=== PATIENT | male | born 1990 | race African-American/Black ===

== ENCOUNTER 2017-02-18 10:11 | Emergency (ER) | payer OTHER ==
[~2017-02-18] VITALS: Ht 172.7 cm; Wt 67.9 kg
[2017-02-18 12:36] LABS: HEMATOCRIT 46.1 % (38.0-50.0); HEMOGLOBIN 15.6 G/DL (12.5-16.6); MCH 29.5 PG (29.0-34.0); MCHC 33.8 G/DL (30.0-36.0); MCV 87.1 FL (86-99); RBC DIS.WIDTH-SD 41.4 % (39-53); RED BLOOD COUNT 5.29 M/uL (4.00-5.50); WHITE BLOOD COUNT 4.4 K/uL (4.1-10.2)
[2017-02-18 12:45] LABS: ALBUMIN 4.4 g/dL (3.2-4.8); CHLORIDE 102 mEq/L (99-109); POTASSIUM 3.9 mEq/L (3.7-5.4)
[2017-02-18 12:46] LABS: SODIUM 135 mEq/L (136-147)
[2017-02-18 12:48] LABS: GLUCOSE 88 mg/dL (70-99); TOTAL PROTEIN 7.4 g/dL (6.4-8.3)
[2017-02-18 12:50] LABS: TOTAL BILIRUBIN 0.8 mg/dL (0.0-1.0)
[2017-02-18 12:51] LABS: ALKALINE PHOSPHATASE 82 IU/L (3-129); CREATININE 1.1 mg/dL (0.6-1.3); GFR ESTIMATE (CALCULATED) > 59 mL/min/ (58.99-99999)
[2017-02-18 12:53] LABS: AST (GOT) 32 IU/L (2-34); UREA NITROGEN (BUN) 16 mg/dL (9-23)
[2017-02-18 12:54] LABS: ALT (GPT) 26 IU/L (3-49)
[2017-02-18 12:55] LABS: LIPASE 24 U/L (1.0-51.0)
[2017-02-18 13:34] LABS: PLAT.SUFFICIENCY ADEQUATE; PLATELET COUNT 186 K/uL (156-360)
[2017-02-18 14:59] LABS: APPEARANCE CLEAR ((CLEAR)); BILIRUBIN NEGATIVE; BLOOD NEGATIVE; COLOR YELLOW ((YELLOW)); GLUCOSE (STRIP) NEGATIVE; KETONES NEGATIVE; LEUKOCYTES NEGATIVE; NITRITE NEGATIVE; PROTEIN (STRIP) NEGATIVE; UROBILINOGEN 0.2 MG/DL (0.2-1.0)
[2017-02-18] MEDS ORDERED: ZOFRAN ODT4 MG PO (15:02)
[2017-02-18] MEDS ORDERED: BENTYL10 MG PO (15:02)
[2017-02-18 15:25] VITALS: BP 98/60
[2017-02-18 15:43] LABS: SPECIFIC GRAVITY 1.096 (1.000-1.030)
== END 2017-02-18 15:25 | disposition home or self-care (01) ==
LOC: EME 10:11
PROVIDERS: Nurse Practitioner Family
DX: R10.30 Lower abdominal pain, unspecified (principal); R11.10 Vomiting, unspecified; K76.0 Fatty (change of) liver, not elsewhere classified
CPT/HCPCS: 74177; 80053; 81003; 83690; 85027; 99281; 99284; J1885; J2405; J7030

== ENCOUNTER 2017-02-19 07:57 | Emergency (ER) | payer OTHER ==
[~2017-02-19] VITALS: Ht 172.7 cm; Wt 68.1 kg
[~2017-02-19 07:57] MED LIST: BENTYL10 MG PO; ZOFRAN ODT4 MG PO
[2017-02-19 07:59] VITALS: BP 115/56
== END 2017-02-19 08:20 | disposition left against medical advice (07) ==
LOC: EME 07:57
DX: R10.13 Epigastric pain (principal); Z53.21 Procedure and treatment not carried out due to patient leaving prior to being seen by health care provider

== ENCOUNTER 2017-03-07 14:47 | Emergency (ER) | payer OTHER ==
[~2017-03-07] VITALS: Ht 172.7 cm; Wt 67.4 kg
[2017-03-07 16:44] LABS: HEMATOCRIT 45.4 % (38.0-50.0); HEMOGLOBIN 15.1 G/DL (12.5-16.6); MCH 29.2 PG (29.0-34.0); MCHC 33.3 G/DL (30.0-36.0); MCV 87.8 FL (86-99); PLATELET COUNT 180 K/uL (156-360); RBC DIS.WIDTH-CV 13.1 % (11.8-14.6); RBC DIS.WIDTH-SD 42.4 % (39-53); RED BLOOD COUNT 5.17 M/uL (4.00-5.50); WHITE BLOOD COUNT 7.8 K/uL (4.1-10.2)
[2017-03-07 16:52] LABS: CHLORIDE 105 mEq/L (99-109); POTASSIUM 3.5 mEq/L (3.7-5.4); SODIUM 138 mEq/L (136-147)
[2017-03-07 16:54] LABS: GLUCOSE 88 mg/dL (70-99)
[2017-03-07 16:57] LABS: SERUM ETHYL ALCOHOL < 10 mg/dL
[2017-03-07 16:58] LABS: CREATININE 0.9 mg/dL (0.6-1.3); GFR ESTIMATE (CALCULATED) > 59 mL/min/ (58.99-99999); UREA NITROGEN (BUN) 11 mg/dL (9-23)
[2017-03-07 18:26] LABS: APPEARANCE SL.HAZY ((CLEAR)); BILIRUBIN NEGATIVE; BLOOD NEGATIVE; GLUCOSE (STRIP) NEGATIVE; KETONES 5; LEUKOCYTES NEGATIVE; NITRITE NEGATIVE; PROTEIN (STRIP) 100; SPECIFIC GRAVITY 1.032 (1.000-1.030)
[2017-03-07 18:31] LABS: BACTERIA RARE /HPF; EPITHELIAL CELLS RARE /HPF; MUCUS 4+ /LPF; RED BLOOD CELLS 0-5 /HPF (0-5); WHITE BLOOD CELLS 0-5 /HPF (0-5)
[2017-03-07 18:38] LABS: AMPHETAMINE NEGATIVE (500 ng/mL); BARBITURATES NEGATIVE (200 ng/mL); BENZODIAZEPINES NEGATIVE (150 ng/mL); BUPRENORPHINE NEGATIVE (10 ng/mL); COCAINE NEGATIVE (150 ng/mL); METHADONE NEGATIVE (200 ng/mL); METHAMPHETAMINE NEGATIVE (500 ng/mL); OPIATES (MORPHINE) NEGATIVE (100 ng/mL); OXYCODONE NEGATIVE (100 ng/mL); PHENCYCLIDINE NEGATIVE (25 ng/mL); PROPOXYPHENE NEGATIVE (300 ng/mL); THC CANNABINOIDS PRESUMPTIVE POSITIVE (50 ng/mL); TRICYCLIC ANTIDEPRESSANTS NEGATIVE (300 ng/mL)
[2017-03-07 18:41] LABS: COLOR YELLOW ((YELLOW))
[2017-03-07] MEDS ORDERED: ZOFRAN ODT8 MG PO (19:31)
[2017-03-07] MEDS ORDERED: BENTYL20 MG PO (19:31)
[2017-03-07 19:56] VITALS: BP 132/96
[2017-03-09 09:21] LABS: TREPONEMA ANTIBODY NEGATIVE (NEGATIVE)
== END 2017-03-07 20:08 | disposition home or self-care (01) ==
LOC: EME 14:47
PROVIDERS: Physician Assistant
DX: Z71.1 Person with feared health complaint in whom no diagnosis is made (principal); F12.10 Cannabis abuse, uncomplicated; F41.9 Anxiety disorder, unspecified; F17.200 Nicotine dependence, unspecified, uncomplicated
CPT/HCPCS: 80048; 81003; 84999; 85027; 86780; 87177; 90832; 99281; 99284; G0480

== ENCOUNTER 2017-05-13 14:09 | Emergency (ER) | payer OTHER ==
[~2017-05-13] VITALS: Ht 172.7 cm; Wt 65.9 kg
[~2017-05-13 14:09] MED LIST changes: +BENTYL20 MG PO; +ZOFRAN ODT8 MG PO
[2017-05-13 14:44] LABS: HEMATOCRIT 41.8 % (38.0-50.0); HEMOGLOBIN 14.1 G/DL (12.5-16.6); MCH 28.9 PG (29.0-34.0); MCHC 33.7 G/DL (30.0-36.0); MCV 85.7 FL (86-99); RBC DIS.WIDTH-CV 13.3 % (11.8-14.6); RBC DIS.WIDTH-SD 41.9 % (39-53); RED BLOOD COUNT 4.88 M/uL (4.00-5.50); WHITE BLOOD COUNT 4.4 K/uL (4.1-10.2)
[2017-05-13 14:56] LABS: ALBUMIN 4.3 g/dL (3.2-4.8); CHLORIDE 106 mEq/L (99-109); POTASSIUM 4.1 mEq/L (3.7-5.4); SODIUM 139 mEq/L (136-147)
[2017-05-13 14:58] LABS: GLUCOSE 82 mg/dL (70-99); TOTAL PROTEIN 6.8 g/dL (6.4-8.3)
[2017-05-13 15:00] LABS: TOTAL BILIRUBIN 1.2 mg/dL (0.0-1.0)
[2017-05-13 15:02] LABS: ALKALINE PHOSPHATASE 71 IU/L (3-129); CREATININE 0.9 mg/dL (0.6-1.3); GFR ESTIMATE (CALCULATED) > 59 mL/min/ (58.99-99999)
[2017-05-13 15:03] LABS: UREA NITROGEN (BUN) 12 mg/dL (9-23)
[2017-05-13 15:04] LABS: AST (GOT) 26 IU/L (2-34)
[2017-05-13 15:05] LABS: ALT (GPT) 25 IU/L (3-49)
[2017-05-13 15:22] LABS: PLAT.SUFFICIENCY ADEQUATE; PLATELET COUNT 185 K/uL (156-360)
[2017-05-13 16:59] LABS: APPEARANCE CLEAR ((CLEAR)); BILIRUBIN NEGATIVE; BLOOD NEGATIVE; COLOR STRAW ((YELLOW)); GLUCOSE (STRIP) NEGATIVE; KETONES NEGATIVE; LEUKOCYTES NEGATIVE; NITRITE NEGATIVE; PROTEIN (STRIP) NEGATIVE; SPECIFIC GRAVITY 1.008 (1.000-1.030); UCUL ADDED? NO; UROBILINOGEN 0.2 MG/DL (0.2-1.0)
[2017-05-13 18:29] VITALS: BP 122/78
== END 2017-05-13 18:30 | disposition home or self-care (01) ==
LOC: EME 14:09
DX: R10.12 Left upper quadrant pain (principal); R44.3 Hallucinations, unspecified; K59.00 Constipation, unspecified; R63.4 Abnormal weight loss; F17.200 Nicotine dependence, unspecified, uncomplicated
CPT/HCPCS: 74022; 80053; 81003; 85027; 87177; 87506; 99281; 99283

== ENCOUNTER 2017-07-03 13:21 | Emergency (ER) | payer OTHER ==
[~2017-07-03] VITALS: Ht 172.7 cm; Wt 63.3 kg
[2017-07-03 13:59] LABS: HEMATOCRIT 42.2 % (38.0-50.0); HEMOGLOBIN 14.8 G/DL (12.5-16.6); MCH 29.9 PG (29.0-34.0); MCHC 35.1 G/DL (30.0-36.0); MCV 85.3 FL (86-99); PLATELET COUNT 204 K/uL (156-360); RBC DIS.WIDTH-CV 13.2 % (11.8-14.6); RBC DIS.WIDTH-SD 40.9 % (39-53); RED BLOOD COUNT 4.95 M/uL (4.00-5.50); WHITE BLOOD COUNT 4.9 K/uL (4.1-10.2)
[2017-07-03 14:09] LABS: ALBUMIN 4.3 g/dL (3.2-4.8)
[2017-07-03 14:10] LABS: CHLORIDE 105 mEq/L (99-109); POTASSIUM 3.8 mEq/L (3.7-5.4); SODIUM 140 mEq/L (136-147)
[2017-07-03 14:12] LABS: GLUCOSE 86 mg/dL (70-99)
[2017-07-03 14:14] LABS: TOTAL BILIRUBIN 1.1 mg/dL (0.0-1.0)
[2017-07-03 14:15] LABS: ALKALINE PHOSPHATASE 71 IU/L (3-129)
[2017-07-03 14:16] LABS: CREATININE 1.2 mg/dL (0.6-1.3); GFR ESTIMATE (CALCULATED) > 59 mL/min/ (58.99-99999)
[2017-07-03 14:17] LABS: AST (GOT) 27 IU/L (2-34); UREA NITROGEN (BUN) 12 mg/dL (9-23)
[2017-07-03 14:19] LABS: ALT (GPT) 22 IU/L (3-49)
[2017-07-03 14:54] LABS: APPEARANCE TURBID ((CLEAR)); BILIRUBIN NEGATIVE; BLOOD NEGATIVE; COLOR YELLOW ((YELLOW)); GLUCOSE (STRIP) NEGATIVE; KETONES NEGATIVE; LEUKOCYTES NEGATIVE; NITRITE NEGATIVE; PROTEIN (STRIP) 30; SPECIFIC GRAVITY 1.026 (1.000-1.030)
[2017-07-03 15:07] LABS: LIPASE 26 U/L (1.0-51.0)
[2017-07-03 15:16] LABS: AMORPHOUS PHOSPHATE CRYSTALS 3+; BACTERIA 2+ /HPF; EPITHELIAL CELLS NONE SEEN /HPF; MUCUS NONE SEEN /LPF; RED BLOOD CELLS NONE SEEN /HPF (0-5); UCUL ADDED? YES; WHITE BLOOD CELLS NONE SEEN /HPF (0-5)
[2017-07-03 15:41] LABS: SOURCE URINE
[2017-07-03 16:02] VITALS: BP 121/65
[2017-07-04] MEDS ORDERED: GABAPENTIN600 MG PO (19:38)
[2017-07-04] MEDS ORDERED: BACLOFEN20 MG PO (19:38)
[2017-07-04] MEDS ORDERED: OMEPRAZOLE40 M1 PO (21:28)
[2017-07-04] MEDS ORDERED: ZOFRAN4 MG PO (21:28)
[2017-07-06 15:20] LABS: CHLAMYDIA TRACHOMATIS NEGATIVE; NEISSERIA GONORRHOEAE NEGATIVE
== END 2017-07-03 16:03 | disposition home or self-care (01) ==
LOC: EME 13:21
PROVIDERS: Physician Assistant
DX: R10.9 Unspecified abdominal pain (principal); R82.71 Bacteriuria; G89.29 Other chronic pain; M79.2 Neuralgia and neuritis, unspecified; M41.9 Scoliosis, unspecified; F17.200 Nicotine dependence, unspecified, uncomplicated
CPT/HCPCS: 74019; 80053; 81003; 83690; 85027; 87086; 87491; 87591; 99281; 99284; J0696

== ENCOUNTER 2017-07-04 18:21 | Emergency (ER) | payer OTHER ==
[~2017-07-04] VITALS: Ht 170.2 cm; Wt 63.5 kg
[2017-07-04] MEDS ORDERED: BACLOFEN20 MG PO (19:38)
[2017-07-04] MEDS ORDERED: GABAPENTIN600 MG PO (19:38)
[2017-07-04 19:41] LABS: HEMOGLOBIN 14.7 G/DL (12.5-16.6); MCH 29.5 PG (29.0-34.0); MCHC 34.2 G/DL (30.0-36.0); MCV 86.2 FL (86-99); PLATELET COUNT 209 K/uL (156-360); RBC DIS.WIDTH-CV 13.3 % (11.8-14.6); RBC DIS.WIDTH-SD 41.2 % (39-53); RED BLOOD COUNT 4.99 M/uL (4.00-5.50); WHITE BLOOD COUNT 5.6 K/uL (4.1-10.2)
[2017-07-04 19:44] LABS: APPEARANCE CLEAR ((CLEAR)); BILIRUBIN NEGATIVE; BLOOD NEGATIVE; COLOR YELLOW ((YELLOW)); GLUCOSE (STRIP) NEGATIVE; KETONES NEGATIVE; LEUKOCYTES TRACE; NITRITE NEGATIVE; PROTEIN (STRIP) 30; SPECIFIC GRAVITY 1.031 (1.000-1.030)
[2017-07-04 19:50] LABS: ALBUMIN 4.4 g/dL (3.2-4.8); CHLORIDE 105 mEq/L (99-109); POTASSIUM 3.8 mEq/L (3.7-5.4); SODIUM 140 mEq/L (136-147)
[2017-07-04 19:53] LABS: GLUCOSE 80 mg/dL (70-99); TOTAL PROTEIN 7.4 g/dL (6.4-8.3)
[2017-07-04 19:54] LABS: BACTERIA NONE SEEN /HPF; EPITHELIAL CELLS NONE SEEN /HPF; MUCUS TRACE /LPF; UCUL ADDED? NO; WHITE BLOOD CELLS 0-5 /HPF (0-5)
[2017-07-04 19:56] LABS: ALKALINE PHOSPHATASE 71 IU/L (3-129); GFR ESTIMATE (CALCULATED) > 59 mL/min/ (58.99-99999)
[2017-07-04 19:57] LABS: UREA NITROGEN (BUN) 15 mg/dL (9-23)
[2017-07-04 19:58] LABS: AST (GOT) 35 IU/L (2-34)
[2017-07-04 19:59] LABS: ALT (GPT) 24 IU/L (3-49)
[2017-07-04 20:00] LABS: LIPASE 27 U/L (1.0-51.0); TOTAL BILIRUBIN 0.8 mg/dL (0.0-1.0)
[2017-07-04] MEDS ORDERED: OMEPRAZOLE40 M1 PO (21:28)
[2017-07-04] MEDS ORDERED: ZOFRAN4 MG PO (21:28)
[2017-07-04 21:41] VITALS: BP 127/80
== END 2017-07-04 21:42 | disposition home or self-care (01) ==
LOC: EME 18:21
DX: K29.70 Gastritis, unspecified, without bleeding (principal); M41.9 Scoliosis, unspecified; F17.200 Nicotine dependence, unspecified, uncomplicated
CPT/HCPCS: 74177; 80053; 81003; 83690; 85027; 99281; 99285; C9113; J2405; J7030

== ENCOUNTER 2017-07-26 18:10 | Emergency (ER) | payer OTHER ==
[~2017-07-26] VITALS: Ht 172.7 cm; Wt 61.4 kg
[~2017-07-26 18:10] MED LIST changes: +BACLOFEN20 MG PO; +GABAPENTIN600 MG PO; +OMEPRAZOLE40 M1 PO; +ZOFRAN4 MG PO
[2017-07-26 20:04] LABS: HEMOGLOBIN 14.3 G/DL (12.5-16.6); MCH 29.3 PG (29.0-34.0); MCV 86.1 FL (86-99); RBC DIS.WIDTH-CV 13.4 % (11.8-14.6); RBC DIS.WIDTH-SD 42.2 % (39-53); RED BLOOD COUNT 4.88 M/uL (4.00-5.50); WHITE BLOOD COUNT 5.9 K/uL (4.1-10.2)
[2017-07-26 20:19] LABS: CHLORIDE 109 mEq/L (99-109); POTASSIUM 3.8 mEq/L (3.7-5.4); SODIUM 143 mEq/L (136-147)
[2017-07-26 20:20] LABS: GLUCOSE 80 mg/dL (70-99)
[2017-07-26 20:24] LABS: CREATININE 0.8 mg/dL (0.6-1.3); GFR ESTIMATE (CALCULATED) > 59 mL/min/ (58.99-99999)
[2017-07-26 20:25] LABS: UREA NITROGEN (BUN) 14 mg/dL (9-23)
[2017-07-26 20:41] LABS: PLAT.SUFFICIENCY ADEQUATE; PLATELET COUNT 210 K/uL (156-360)
[2017-07-26] MEDS ORDERED: LEVSIN-SL0.125 MG SL (20:55)
[2017-07-26 21:04] VITALS: BP 122/20
[2017-07-27 13:19] LABS: STOOL OCCULT BLD 1ST SPECIMEN NEGATIVE
== END 2017-07-26 21:06 | disposition home or self-care (01) ==
LOC: EME 18:10 → EXP 18:10
PROVIDERS: Nurse Practitioner Family
DX: R10.84 Generalized abdominal pain (principal); K62.89 Other specified diseases of anus and rectum; F22 Delusional disorders; F17.200 Nicotine dependence, unspecified, uncomplicated
CPT/HCPCS: 80048; 82272; 85027; 87177; 87493; 90839; 99281; 99282

== ENCOUNTER 2017-09-08 11:53 | Emergency (ER) | payer OTHER ==
[~2017-09-08] VITALS: Ht 172.7 cm; Wt 57.3 kg
[~2017-09-08 11:53] MED LIST changes: +LEVSIN-SL0.125 MG SL
[2017-09-08 12:47] LABS: HEMATOCRIT 45.4 % (38.0-50.0); HEMOGLOBIN 15.5 G/DL (12.5-16.6); MCH 29.3 PG (29.0-34.0); MCHC 34.1 G/DL (30.0-36.0); MCV 85.8 FL (86-99); RBC DIS.WIDTH-CV 13.7 % (11.8-14.6); RBC DIS.WIDTH-SD 42.6 % (39-53); RED BLOOD COUNT 5.29 M/uL (4.00-5.50); WHITE BLOOD COUNT 8.7 K/uL (4.1-10.2)
[2017-09-08 12:54] LABS: ALBUMIN 5.2 g/dL (3.2-4.8); CHLORIDE 106 mEq/L (99-109); POTASSIUM 3.6 mEq/L (3.7-5.4); SODIUM 146 mEq/L (136-147)
[2017-09-08 12:56] LABS: GLUCOSE 136 mg/dL (70-99); TOTAL PROTEIN 8.4 g/dL (6.4-8.3)
[2017-09-08 12:58] LABS: TOTAL BILIRUBIN 1.5 mg/dL (0.0-1.0)
[2017-09-08 13:00] LABS: ALKALINE PHOSPHATASE 75 IU/L (3-129); CREATININE 1.2 mg/dL (0.6-1.3); GFR ESTIMATE (CALCULATED) > 59 mL/min/ (58.99-99999)
[2017-09-08 13:01] LABS: UREA NITROGEN (BUN) 18 mg/dL (9-23)
[2017-09-08 13:02] LABS: AST (GOT) 31 IU/L (2-34)
[2017-09-08 13:03] LABS: ALT (GPT) 28 IU/L (3-49)
[2017-09-08 13:27] LABS: PLAT.SUFFICIENCY ADEQUATE; PLATELET CLUMPS PRESENT - PLATELET COUNT APPEARS ADEQUATE; PLATELET COUNT UNABLE TO REPORT K/uL (156-360)
[2017-09-08 14:44] LABS: AMPHETAMINE NEGATIVE (500 ng/mL); APPEARANCE SL.HAZY ((CLEAR)); BARBITURATES NEGATIVE (200 ng/mL); BENZODIAZEPINES NEGATIVE (150 ng/mL); BILIRUBIN NEGATIVE; BLOOD NEGATIVE; BUPRENORPHINE NEGATIVE (10 ng/mL); COCAINE PRESUMPTIVE POSITIVE (150 ng/mL); COLOR YELLOW ((YELLOW)); GLUCOSE (STRIP) NEGATIVE; KETONES 5; LEUKOCYTES NEGATIVE; METHADONE NEGATIVE (200 ng/mL); METHAMPHETAMINE NEGATIVE (500 ng/mL); NITRITE NEGATIVE; OPIATES (MORPHINE) NEGATIVE (100 ng/mL); OXYCODONE NEGATIVE (100 ng/mL); PHENCYCLIDINE NEGATIVE (25 ng/mL); PROPOXYPHENE NEGATIVE (300 ng/mL); PROTEIN (STRIP) 100; SPECIFIC GRAVITY 1.035 (1.000-1.030); THC CANNABINOIDS PRESUMPTIVE POSITIVE (50 ng/mL); TRICYCLIC ANTIDEPRESSANTS NEGATIVE (300 ng/mL); UROBILINOGEN 0.2 MG/DL (0.2-1.0)
[2017-09-08 14:53] LABS: BACTERIA NONE SEEN /HPF; EPITHELIAL CELLS NONE SEEN /HPF; MUCUS 3+ /LPF; RED BLOOD CELLS 0-5 /HPF (0-5); UCUL ADDED? NO; WHITE BLOOD CELLS 0-5 /HPF (0-5)
[2017-09-08] MEDS ORDERED: ONDANSETRON ODT4 MG PO (15:37)
[2017-09-08 16:01] VITALS: BP 138/101
== END 2017-09-08 16:02 | disposition home or self-care (01) ==
LOC: EME 11:53
PROVIDERS: Emergency Medicine
DX: R11.2 Nausea with vomiting, unspecified (principal); F12.90 Cannabis use, unspecified, uncomplicated; K21.9 Gastro-esophageal reflux disease without esophagitis; M41.9 Scoliosis, unspecified
CPT/HCPCS: 80053; 81003; 84999; 85027; 99281; 99285; J2405; J7040

== ENCOUNTER 2017-09-14 18:12 | Emergency (ER) | payer OTHER ==
[~2017-09-14] VITALS: Ht 172.7 cm; Wt 62.1 kg
[~2017-09-14 18:12] MED LIST changes: +ONDANSETRON ODT4 MG PO
[2017-09-14 19:03] LABS: HEMATOCRIT 40.3 % (38.0-50.0); HEMOGLOBIN 14.1 G/DL (12.5-16.6); MCH 29.6 PG (29.0-34.0); MCV 84.5 FL (86-99); RBC DIS.WIDTH-CV 13.3 % (11.8-14.6); RBC DIS.WIDTH-SD 41.4 % (39-53); RED BLOOD COUNT 4.77 M/uL (4.00-5.50); WHITE BLOOD COUNT 5.7 K/uL (4.1-10.2)
[2017-09-14 19:05] LABS: PLATELET COUNT 206 K/uL (156-360)
[2017-09-14 19:14] LABS: CHLORIDE 107 mEq/L (99-109); POTASSIUM 3.8 mEq/L (3.7-5.4); SODIUM 142 mEq/L (136-147)
[2017-09-14 19:15] LABS: GLUCOSE 74 mg/dL (70-99)
[2017-09-14 19:18] LABS: TROP-I INTERPRETATION NEGATIVE; TROPONIN-I < 0.01 ng/mL (0.0-0.30)
[2017-09-14 19:19] LABS: CREATININE 0.9 mg/dL (0.6-1.3); GFR ESTIMATE (CALCULATED) > 59 mL/min/ (58.99-99999)
[2017-09-14 19:20] LABS: UREA NITROGEN (BUN) 17 mg/dL (9-23)
[2017-09-14] MEDS ORDERED: VOLTAREN75 MG PO (21:12)
[2017-09-14 21:32] VITALS: BP 112/65
== END 2017-09-14 21:32 | disposition home or self-care (01) ==
LOC: EME 18:12
DX: R07.89 Other chest pain (principal); K21.9 Gastro-esophageal reflux disease without esophagitis; G89.29 Other chronic pain; M41.9 Scoliosis, unspecified; F17.200 Nicotine dependence, unspecified, uncomplicated; Z90.49 Acquired absence of other specified parts of digestive tract
CPT/HCPCS: 71046; 80048; 84484; 85027; 93005; 99281; 99284

== ENCOUNTER 2017-09-25 19:39 | Emergency (ER) | payer OTHER ==
[~2017-09-25] VITALS: Ht 172.7 cm; Wt 60.8 kg
[~2017-09-25 19:39] MED LIST changes: +VOLTAREN75 MG PO
[2017-09-25 21:07] LABS: SOURCE URINE
[2017-09-25 21:12] LABS: APPEARANCE CLEAR ((CLEAR)); BILIRUBIN NEGATIVE; BLOOD NEGATIVE; COLOR YELLOW ((YELLOW)); GLUCOSE (STRIP) NEGATIVE; KETONES NEGATIVE; LEUKOCYTES NEGATIVE; NITRITE NEGATIVE; PROTEIN (STRIP) NEGATIVE; SPECIFIC GRAVITY 1.026 (1.000-1.030); UCUL ADDED? NO
[2017-09-25 21:14] LABS: ALBUMIN 4.7 g/dL (3.2-4.8); CHLORIDE 105 mEq/L (99-109); HEMATOCRIT 45.3 % (38.0-50.0); HEMOGLOBIN 15.4 G/DL (12.5-16.6); MCH 29.8 PG (29.0-34.0); MCV 87.6 FL (86-99); POTASSIUM 3.9 mEq/L (3.7-5.4); RBC DIS.WIDTH-CV 13.5 % (11.8-14.6); RBC DIS.WIDTH-SD 43.5 % (39-53); RED BLOOD COUNT 5.17 M/uL (4.00-5.50); SODIUM 141 mEq/L (136-147); WHITE BLOOD COUNT 6.1 K/uL (4.1-10.2)
[2017-09-25 21:16] LABS: GLUCOSE 90 mg/dL (70-99); TOTAL PROTEIN 7.7 g/dL (6.4-8.3)
[2017-09-25 21:18] LABS: TOTAL BILIRUBIN 1.2 mg/dL (0.0-1.0)
[2017-09-25 21:20] LABS: ALKALINE PHOSPHATASE 82 IU/L (3-129); GFR ESTIMATE (CALCULATED) > 59 mL/min/ (58.99-99999)
[2017-09-25 21:21] LABS: UREA NITROGEN (BUN) 11 mg/dL (9-23)
[2017-09-25 21:22] LABS: AST (GOT) 29 IU/L (2-34)
[2017-09-25 21:23] LABS: ALT (GPT) 24 IU/L (3-49)
[2017-09-25 22:44] LABS: PLAT.SUFFICIENCY ADEQUATE; PLATELET COUNT 225 K/uL (156-360)
[2017-09-25 23:24] VITALS: BP 145/80
[2017-09-28 12:57] LABS: CHLAMYDIA TRACHOMATIS NEGATIVE; NEISSERIA GONORRHOEAE NEGATIVE
== END 2017-09-25 23:36 | disposition home or self-care (01) ==
LOC: EME 19:39 → EXP 19:39
PROVIDERS: Physician Assistant
DX: N50.82 Scrotal pain (principal); G89.29 Other chronic pain; K21.9 Gastro-esophageal reflux disease without esophagitis; M41.9 Scoliosis, unspecified; F17.200 Nicotine dependence, unspecified, uncomplicated
CPT/HCPCS: 76870; 80053; 81003; 85027; 87491; 87591; 99281; 99284

== ENCOUNTER 2017-09-26 05:38 | Emergency (ER) | payer OTHER ==
[~2017-09-26] VITALS: Ht 172.7 cm; Wt 61.8 kg
[2017-09-26 07:37] VITALS: BP 139/87
== END 2017-09-26 07:40 | disposition home or self-care (01) ==
LOC: EME 05:38
DX: F22 Delusional disorders (principal); K21.9 Gastro-esophageal reflux disease without esophagitis; M41.9 Scoliosis, unspecified; M79.606 Pain in leg, unspecified; G89.29 Other chronic pain; F17.200 Nicotine dependence, unspecified, uncomplicated
CPT/HCPCS: 99281; 99285